=== PATIENT | female | born 2000 | race African-American/Black ===

== ENCOUNTER 2022-09-09 17:12 | Inpatient (IN) | payer OTHER ==
[2022-09-09 17:48] VITALS: BMI 24.7
[2022-09-09] MEDS ORDERED: Ibuprofen 800 MG TAB PO PRN (18:42)
[2022-09-09] MEDS ORDERED: Promethazine HCl 25 MG/ML VIAL IM PRN (18:42)
[2022-09-09] MEDS ORDERED: Lidocaine 1% (PF) 30 ML VIAL SC PRN (18:42)
[2022-09-09] MEDS ORDERED: Misoprostol 200 MCG TAB PR PRN (18:42)
[2022-09-09] MEDS ORDERED: Ondansetron PF 4 MG/2 ML Vial IVP PRN (18:42)
[2022-09-09] MEDS ORDERED: Methylergonovine 0.2 MG/ML VIAL IM PRN (18:42)
[2022-09-09] MEDS ORDERED: hydrALAZINE 20 MG/ML VIAL SLOW IVP PRN (18:42)
[2022-09-09] MEDS ORDERED: NS w/ Oxytocin 30 units 500 ML IV SCH ×2 (18:45)
[2022-09-09] MEDS: Lactated Ringer's 1,000 ML IV SCH (20:00)
[2022-09-09 20:01] LABS: Hemoglobin 12.3 g/dL (12.0-15.5); Mean Corpuscular HGB CONC 36.2 g/dL (32.0-36.0); Mean Corpuscular Hemoglobin 28.2 pg (27.0-33.0); Mean Platelet Volume 11.5 fl (7.4-10.4); Platelet Count 204 10x3/uL (150-450); RBC Distribution Width 17.1 % (11.5-14.5); Red Blood Cell (RBC) Count 4.36 10x6/uL (3.90-5.03); White Blood Cell (WBC) Count 9.1 10x3/uL (3.5-10.5)
[2022-09-09 20:27] LABS: HBSAg Index 0.15 S/CO (0-0.99); Hep B Surf Ag Non-Reactive S/CO (NonReactive)
[2022-09-09 20:29] LABS: Syphilis Antibody Nonreactive (Nonreactive); Syphilis Antibody Index 0.04 S/CO (<1.00 Non-Reactive)
[2022-09-09 21:19] LABS: SARS-CoV-2 NAA Rapid Test Not Detected (NotDetected)
[2022-09-10] MEDS: Misoprostol 100 MCG TAB VAG SCH (00:20)
[2022-09-10] MEDS: Lactated Ringer's 1,000 ML IV SCH ×2 (01:36→15:09)
[2022-09-10] MEDS ORDERED: Promethazine HCl 25 MG/ML VIAL IM PRN ×4 (03:44→13:27)
[2022-09-10] MEDS ORDERED: hydrALAZINE 20 MG/ML VIAL SLOW IVP PRN ×2 (03:44→13:22)
[2022-09-10] MEDS ORDERED: Butorphanol Tartrate 1 MG/ML VIAL SLOW IVP PRN (03:44)
[2022-09-10] MEDS ORDERED: Ondansetron PF 4 MG/2 ML Vial IVP PRN ×3 (03:44→13:22)
[2022-09-10] MEDS ORDERED: Butorphanol Tartrate 1 MG/ML VIAL ONE (03:48)
[2022-09-10] MEDS ORDERED: Fentanyl 2 mcg/Bup 0.1% Cadd 100 ML ONE (07:19)
[2022-09-10] MEDS ORDERED: Bupivacaine 0.25% HCL 30 ML VIAL ONE (08:38)
[2022-09-10] MEDS ORDERED: Naloxone HCl 0.4 mg/ml Vial IVP PRN ×2 (08:56)
[2022-09-10] MEDS ORDERED: Moisturizing Cream (Eucerin) 113 GM JAR TOP PRN (08:56)
[2022-09-10] MEDS ORDERED: Acetaminophen 325 MG TAB PO PRN ×2 (08:56→13:22)
[2022-09-10] MEDS ORDERED: Lactated Ringer's 500 ML IV PRN (08:56)
[2022-09-10] MEDS ORDERED: ePHEDrine Sulfate 50 MG/10 ML VIAL SLOW IVP PRN (08:56)
[2022-09-10] MEDS ORDERED: diphenhydrAMINE 50 MG/ML VIAL IVP PRN (08:56)
[2022-09-10] MEDS ORDERED: Fentanyl 2 mcg/Bupivacaine 0.1% Cassette 100 ML EPIDURAL SCH (09:00)
[2022-09-10] MEDS ORDERED: Communication Order-Pharmacy FS SCH (09:00)
[2022-09-10] MEDS ORDERED: Bicitra 30 ML UDCUP PO PRN (10:26)
[2022-09-10] MEDS ORDERED: CEFAZOLIN 2 GM VIAL ONE (10:26)
[2022-09-10] MEDS ORDERED: Famotidine/PF 20 mg/2ml Vial SLOW IVP PRN (10:26)
[2022-09-10] MEDS ORDERED: Azithromycin 500 MG VIAL ONE (10:26)
[2022-09-10] MEDS ORDERED: Famotidine/PF 20 mg/2ml Vial ONE (10:27)
[2022-09-10] MEDS ORDERED: CEFAZOLIN 2 GM in Sodium Chloride 0.9% 100 ML IVPB SCH (10:30)
[2022-09-10] MEDS ORDERED: Chloroprocaine 3% PF 20 ML VIAL ONE (10:31)
[2022-09-10] MEDS ORDERED: Ondansetron PF 4 MG/2 ML Vial ONE (10:32)
[2022-09-10] MEDS ORDERED: Oxytocin 10 UNITS/ML VIAL ONE (10:32)
[2022-09-10] MEDS ORDERED: Morphine PF 10 MG/10 ML VIAL ONE (10:32)
[2022-09-10] MEDS ORDERED: Dexamethasone 4 mg/ml Vial ONE (10:32)
[2022-09-10] MEDS ORDERED: Ketorolac Tromethamine 30 MG/ML VIAL ONE (10:32)
[2022-09-10] MEDS ORDERED: Azithromycin 500 MG in Sodium Chloride 0.9% 250 ML 250 ML IVPB SCH (10:45)
[2022-09-10] MEDS ORDERED: Tranexamic Acid 1,000 MG/10 ML VIAL ONE (11:12)
[2022-09-10 11:43] LABS: pH (Cord, venous) 7.242 (7.250-7.350)
[2022-09-10] MEDS ORDERED: Meperidine HCl/PF 25 MG/ML VIAL ONE (12:40)
[2022-09-10] MEDS ORDERED: Methylergonovine 0.2 MG/ML VIAL IM PRN (13:22)
[2022-09-10] MEDS ORDERED: Simethicone Chewable 80 MG TAB PO PRN (13:22)
[2022-09-10] MEDS ORDERED: NS w/ Oxytocin 30 units 500 ML IV SCH (13:22)
[2022-09-10] MEDS ORDERED: Methylergonovine 0.2 MG TAB PO PRN (13:22)
[2022-09-10] MEDS ORDERED: diphenhydrAMINE 25 MG CAP PO PRN (13:22)
[2022-09-10] MEDS ORDERED: Misoprostol 200 MCG TAB PR PRN (13:22)
[2022-09-10] MEDS ORDERED: Meperidine HCl/PF 25 MG/ML VIAL SLOW IVP PRN (13:27)
[2022-09-10] MEDS ORDERED: Promethazine HCl 25 MG/ML VIAL IVPB PRN (13:27)
[2022-09-10] MEDS ORDERED: Ondansetron HCl/PF 4 MG/2 ML Vial IVP PRN (13:27)
[2022-09-10] MEDS ORDERED: Ibuprofen 800 MG TAB PO SCH (16:30)
[2022-09-10] MEDS: Ketorolac Tromethamine 30 MG/ML VIAL IVP SCH (18:19)
[2022-09-10] MEDS: Ferrous Sulfate 325 MG TAB PO SCH (21:40)
[2022-09-10] MEDS: Docusate 100 MG CAP PO SCH (21:40)
[2022-09-11] MEDS: Ketorolac Tromethamine 30 MG/ML VIAL IVP SCH ×2 (00:01→05:32)
[2022-09-11] MEDS: Lactated Ringer's 1,000 ML IV SCH ×4 (00:06→22:01)
[2022-09-11 03:29] LABS: Mean Corpuscular HGB CONC 35.3 g/dL (32.0-36.0); Mean Corpuscular Hemoglobin 27.9 pg (27.0-33.0); Mean Corpuscular Volume 79.1 fl (81.6-98.3); Mean Platelet Volume 11.6 fl (7.4-10.4); Platelet Count 170 10x3/uL (150-450); RBC Distribution Width 17.1 % (11.5-14.5); Red Blood Cell (RBC) Count 3.58 10x6/uL (3.90-5.03); White Blood Cell (WBC) Count 12.6 10x3/uL (3.5-10.5)
[2022-09-11] MEDS: Ferrous Sulfate 325 MG TAB PO SCH ×2 (07:12→22:01)
[2022-09-11] MEDS: Docusate 100 MG CAP PO SCH ×2 (08:08→20:12)
[2022-09-11] MEDS: Prenatal Vitamin 1 TAB PO SCH (08:08)
[2022-09-11] MEDS ORDERED: HYDROcodone/Acetaminophen 5/325 mg Tablet PO PRN ×4 (08:13→08:56)
[2022-09-11] MEDS: Ibuprofen 800 MG TAB PO SCH ×2 (12:36→20:12)
[2022-09-12] MEDS: Ibuprofen 800 MG TAB PO SCH ×2 (04:09→13:30)
[2022-09-12] MEDS: Lactated Ringer's 1,000 ML IV SCH (07:20)
[2022-09-12] MEDS: Ferrous Sulfate 325 MG TAB PO SCH (07:21)
[2022-09-12] MEDS: Misoprostol 100 MCG TAB VAG SCH (07:23)
[2022-09-12 08:46] VITALS: BP 119/67; TEMP 97.9
[2022-09-12] MEDS: Prenatal Vitamin 1 TAB PO SCH (09:52)
[2022-09-12] MEDS: Docusate 100 MG CAP PO SCH (09:52)
[2022-09-13] MEDS ORDERED: Boostrix 0.5 ML (Tdap) VIAL (>/=7 yrs of age) IM ONE (13:22)
== END 2022-09-12 15:05 | disposition home or self-care (01) | DRG 788 ==
LOC: CSHLD 17:12 → CSHPP 09-10 14:35
PROVIDERS: ADMIT Family Medicine; ATTEND Family Medicine
PROC: 3E0P7VZ Introduction of Hormone into Female Reproductive, Via Natural or Artificial Opening (ICD-10-PCS; 2022-09-09)
PROC: 10D00Z1 Extraction of Products of Conception, Low, Open Approach (ICD-10-PCS; principal; 2022-09-10)
PROC: 10H07YZ Insertion of Other Device into Products of Conception, Via Natural or Artificial Opening (ICD-10-PCS; 2022-09-10)
DX: O41.03X0 Oligohydramnios, third trimester, not applicable or unspecified (principal); Z37.0 Single live birth; Z20.822 Contact with and (suspected) exposure to COVID-19; O76 Abnormality in fetal heart rate and rhythm complicating labor and delivery; Z91.018 Allergy to other foods; Z3A.36 36 weeks gestation of pregnancy; J45.909 Unspecified asthma, uncomplicated; O99.02 Anemia complicating childbirth; O99.52 Diseases of the respiratory system complicating childbirth; Z79.899 Other long term (current) drug therapy; D50.9 Iron deficiency anemia, unspecified; O42.02 Full-term premature rupture of membranes, onset of labor within 24 hours of rupture; O32.8XX0 Maternal care for other malpresentation of fetus, not applicable or unspecified
CPT/HCPCS: 36415; 51702; 82805; 85027; 86780; 86850; 86900; 86901; 87340; J0595; J1100; J1885; J2175; J2274; J2401; J2405; J2590; J7120; U0002

== ENCOUNTER 2022-10-15 06:53 | Emergency (ER) | payer OTHER | END 2022-10-15 08:05 | disposition home or self-care (01) | LOC: CSHERS 06:53 | DX: L25.9 Unspecified contact dermatitis, unspecified cause (principal) | CPT/HCPCS: 99282 ==

== ENCOUNTER 2023-06-22 19:14 | Emergency (ER) | payer BC, OTHER | END 2023-06-22 19:48 | disposition home or self-care (01) | LOC: CSHERS 19:14 | DX: T78.40XA Allergy, unspecified, initial encounter (principal) | CPT/HCPCS: 99283 ==

== ENCOUNTER 2023-11-17 11:20 | Emergency (ER) | payer MEDICAID, OTHER ==
[2023-11-17] MEDS ORDERED: Ketorolac Tromethamine 30 MG (1 mL) VIAL ONE (12:41)
[2023-11-17] MEDS ORDERED: Meclizine HCl 25 MG TAB ONE (12:42)
[2023-11-17] MEDS ORDERED: Ondansetron ODT 4 MG TAB ONE (12:42)
== END 2023-11-17 12:50 | disposition home or self-care (01) ==
LOC: CSHERS 11:20
DX: S06.0X0A Concussion without loss of consciousness, initial encounter (principal); R42 Dizziness and giddiness; H72.92 Unspecified perforation of tympanic membrane, left ear; W22.8XXA Striking against or struck by other objects, initial encounter
CPT/HCPCS: 70450; 96372; J1885; Q0162

== ENCOUNTER 2024-07-23 14:49 | Emergency (ER) | payer SELFPAY ==
[2024-07-23] MEDS ORDERED: Dexamethasone 10 MG/ML VIAL ONE (15:38)
[2024-07-23] MEDS ORDERED: Ketorolac Tromethamine 30 MG (1 mL) VIAL ONE (15:38)
[2024-07-23] MEDS ORDERED: Lidocaine Viscous Sol 2% 15 ml UD Cup ONE (15:39)
[2024-07-23 16:09] LABS: Pregnancy Test - Urine (BHCG) Negative (Negative); Pregu Control Background? CLEAR/WHITE (CLR/WHITE); Pregu Control Bar Appear? YES (CONTROL BAR)
== END 2024-07-23 17:53 | disposition home or self-care (01) ==
LOC: CSHERS 14:49
DX: J02.0 Streptococcal pharyngitis (principal)
CPT/HCPCS: 81025; 87430; 96372; J1100; J1885